=== PATIENT | female | born 1960 | race Caucasian/White ===

== ENCOUNTER 2020-08-18 07:02 | Day surgery (SDC) | payer MEDICAID ==
[~2020-08-18 07:02] MED LIST: CEFAZOLIN 1 GM/D5W RTU 1 GM/50 ML RTUPB IV PRN; DEXTROSE 5%-LACTATED RINGERS 1,000 ML IV PRN; LIDOCAINE 4% CREAM 5 GM TUBE ONE; LIDOCAINE 4% CREAM 5 GM TUBE TP PRN
[2020-08-18] MEDS ORDERED: KETOROLAC TROMETHAMINE 60 MG/2 ML SDV ONE (08:39)
[2020-08-18] MEDS ORDERED: FENTANYL CITRATE INJ/PF 100 MCG/2 ML AMPUL ONE (08:39)
[2020-08-18] MEDS ORDERED: PROPOFOL INJ 200 MG/20 ML VIAL IV ONE (08:40)
[2020-08-18] MEDS ORDERED: DEXAMETHASONE SOD PHOSPHATE INJ 4 MG/1 ML VIAL ONE (08:40)
[2020-08-18] MEDS ORDERED: MIDAZOLAM 2 MG/2 ML INJ ONE (08:40)
[2020-08-18] MEDS ORDERED: ONDANSETRON HCL INJ/PF 4 MG/2 ML SDV ONE (08:40)
[2020-08-18] MEDS ORDERED: CEFAZOLIN 1 GM/D5W RTU 1 GM/50 ML RTUPB IV ONE (10:24)
[2020-08-18 10:39] LABS: ABSOLUTE BASOPHILS # (AUTO) 0.1 10^3/uL (0.0-0.2); ABSOLUTE EOSINOPHILS # (AUTO) 0.6 10^3/uL (0.0-0.6); ABSOLUTE LYMPHOCYTES (AUTO) 3.9 10^3/uL (0.5-4.7); ABSOLUTE MONOCYTES (AUTO) 0.9 10^3/uL (0.1-1.4); ABSOLUTE NEUT (AUTO) 5.5 10^3/uL (1.7-8.2); BASOPHILS % (AUTO) 0.6 % (0-2); EOSINOPHILS % (AUTO) 5.8 % (0-6); HEMATOCRIT 39.7 % (36.0-47.0); HEMOGLOBIN 13.3 g/dL (12.0-15.5); LYMPHOCYTES % (AUTO) 35.6 % (13-45); MEAN CORPUSCULAR HGB CONC 33.6 g/dL (32.0-36.0); MEAN CORPUSCULAR VOLUME 95 fl (80-97); MONOCYTES % (AUTO) 8.1 % (3-13); PLATELET COUNT 231 10^3/uL (150-450); RED BLOOD COUNT 4.18 10^6/uL (3.72-5.28); RED CELL DISTRIBUTION WIDTH 13.3 % (11.5-14.0); SEGMENTED NEUTROPHILS % (AUTO) 49.9 % (42-78); TOTAL CELLS COUNTED % (AUTO) 100 %
[2020-08-18] MEDS ORDERED: ALBUTEROL SULFATE 0.083% NEB 2.5 MG/3 ML AMPUL NEB ONE ×2 (10:48→11:00)
[2020-08-18 10:58] LABS: ANION GAP 8 (5-19); BLOOD UREA NITROGEN 12 mg/dL (7-20); CALCIUM 9.7 mg/dL (8.4-10.2); CARBON DIOXIDE 25 mmol/L (22-30); CHLORIDE 107 mmol/L (98-107); GLUCOSE 94 mg/dL (75-110); POTASSIUM 4.7 mmol/L (3.6-5.0)
--- NOTE | 2020-08-18 11:10 | Operative Report ---
Operative Report DATE OF SURGERY: 08/18/20 PREOPERATIVE DIAGNOSIS: Invasive ductal carcinoma right breast POSTOPERATIVE DIAGNOSIS: Same OPERATION: 1. Focused ultrasound left neck. 2. Insertion of ultrasound directed single-lumen [id number] catheter with port in the left subclavian position. 3. Interpretation of intraoperative fluoroscopy SURGEON: CRISTINA VARGAS ANESTHESIA: LMAC TISSUE REMOVED OR ALTERED: None COMPLICATIONS: None ESTIMATED BLOOD LOSS: Scant INTRAOPERATIVE FINDINGS: See below PROCEDURE: Patient was taken from the preop holding area, after the left neck was marked, and taken to the main operating room where LMAC anesthesia was induced. Arms were tucked, neck extended and rotated to the right, left neck and chest prepped and draped in a sterile fashion with Betadine. Surgical plan surgical timeout were conducted Markings were made on the skin for planned left subclavian port going into the left internal jugular vein. The left neck was scanned with a variable frequency linear transducer and findings were significant for compressible, moderate to large caliber internal jugular vein suitable for cannulation. Skin was anesthetized with 1% plain lidocaine. A ellis was made in the skin with 11 blade, and using ultrasound as a guide, the micro needle and wire were threaded into the left internal jugular vein. Photo of left internal jugular vein retained for the record. We will site for placement of the port was chosen left subclavian position. The skin was anesthetized with 1% plain lidocaine. A 3 and half centimeter incision was made in the skin horizontal to the clavicle. A subcutaneous pocket was developed large enough to accommodate a single-chamber port. Catheter was then trimmed to the appropriate length, tunnel between the 2 incisions, attached to the port with the plastic ring and the port tucked into the left subclavian pocket. Under fluoroscopic guidance, real-time, the micro wire was switched over to a conventional 0.030 guidewire, then the 9 [place] dilator introducer sheath were threaded over the guidewire. The guidewire and dilator were removed,, and the free fragment of catheter threaded into the strip away sheath. The strip away sheath was removed leaving the cath in good position with the tip in the junction between the innominate vein and superior vena cava. Fluoroscopically there is no evidence of kinking of the catheter at the neck. There was excellent aspiration and flushing through the single-chamber port. Hemostasis was excellent. Wounds closed with 3-0 Vicryl, benzoin and Steri-Strips. Sponge and needle counts are correct. Patient taught procedure well, taken to recovery room stable condition.
[2020-08-18] MEDS ORDERED: MICROFIBRILLAR COLLAGEN 1 GM PACK ONE (11:18)
[2020-08-18] MEDS ORDERED: LIDOCAINE 1%/EPINEPHRINE INJ 20 ML VIAL ONE (11:18)
[2020-08-18] MEDS ORDERED: METHYLENE BLUE 50 MG/10 ML AMPULE ONE (11:18)
[2020-08-18] MEDS ORDERED: OXYCODONE-ACETAMINOPHEN 5-325 MG TABLET PO PRN ×3 (12:30→13:16)
[2020-08-18] MEDS ORDERED: MEPERIDINE HCL/PF INJ 25 MG/1 ML DISP.SYRIN IV PRN (12:30)
[2020-08-18] MEDS ORDERED: DIPHENHYDRAMINE HCL 50 MG/ML VIAL IV PRN (12:30)
[2020-08-18] MEDS ORDERED: FENTANYL CITRATE INJ/PF 100 MCG/2 ML AMPUL IV PRN ×3 (12:30)
[2020-08-18] MEDS ORDERED: PROMETHAZINE HCL INJ 25 MG/1 ML VIAL IV PRN ×2 (12:30)
[2020-08-18] MEDS ORDERED: MORPHINE SULFATE 10 MG/ML INJ IV PRN (12:30)
--- NOTE | 2020-08-18 13:15 | Discharge Summary ---
Discharge Summary (SDC) - Discharge Final Diagnosis: Invasive DCIS Date of Surgery: 08/18/20 Discharge Date: 08/18/20 Condition: Good Treatment or Instructions: [facility] [address] [place] [id number] Care Instructions Following Your Lumpectomy Activities: Resume normal activities when you feel comfortable. It is best to remain as active as possible to speed your recovery. It is common to experience some fatigue after surgery and you may find that short naps are helpful. Avoid strenuous activity such as weight lifting, tennis, etc at your surgical site for two weeks. Perform gentle arm exercises daily and do not favor your operative arm to due increased risk of mobility issues postoperatively. No driving for 7 days after surgery. Do not drive if you are taking pain medication other than Tylenol or Ibuprofen. No swimming, tub baths or soaking in a hot tub for 4 weeks. There are no dietary restrictions. Do not smoke as this impairs wound healing. Surgical Site care: You may shower 24 hours after surgery to include washing the wound with soap and water using your hands. Do not scrub the incision. Pat the area dry with a towel. Leave skin glue intact. You do not need to recover the wound although some patients find that they feel more comfortable using a light dressing for a few days to absorb any minimal drainage which may occur. Many patients also find that keeping a dressing around the drain exit site is helpful to absorb any drainage which may leak around the tubing. If you use a dressing in this manner change it at least every day. Do not use heating pad or apply an ice pack to the operative site. You may apply deodorant if you are careful to avoid getting it on the wound itself. Empty the bulbs attached to the drain every 12 hours and measure the fluid output separately from each drain. Please also strip each drain each time you empty it to prevent clogging. Keep a record of the output and bring this re cord with you each time you come to the office for postoperative care. A drain is ready to be removed when its output is 30 mL per 24 hours per drain for 2 consecutive days. Please call the office to inform our staff that you need to come in for drain removal. Medications: Take Toradol 10mg one pill by mouth every six hours as needed for pain. Do not take additional NSAIDs with medication. You may take Tylenol as needed. Resume all of your normal prescription medications after your surgery unless instructed otherwise. You may experience constipation after surgery while taking pain medications. If using a narcotic on a regular basis, take a stool softener such as Colace twice a day. It is helpful to stay hydrated by drinking lots of fluids. Walking is also helpful and is good exercise after surgery. If you need extra help, use Milk of Magnesia according to the directions on the package. Follow-up: Call our office at to make a follow-up appointment in 10-14 days. Your doctor will call to discuss the pathology report with you as soon as it is available. Concerns: If you had a sentinel lymph node biopsy with your mastectomy, your urine may have a greenish discoloration. This is normal and will resolve as the blue dye slowly leaves your system. If you notice significant leakage around the drains, this is not normal. The drains may be clogged. Please call our office to come in immediately for the drains to be checked. Some bruising may occur and will go away over time. If you have a fever of 101.5 or greater, chills, redness at the incision site, excessive drainage from your wound or severe pain not relieved by pain medication, call your doctor. A physician is available 24 hours a day 7 days a week in addition to regular office hours. If problems arise after normal office hours please call the hospital at . Please call if you have any questions or concerns. Prescriptions: Ketorolac Tromethamine [Toradol 10 mg Tablet] 10 mg PO Q6HP PRN #20 tablet PRN Reason: Discharge Diet: As Tolerated Discharge Activity: Balance Activity w/Rest, No Lifting Over 10 Pounds, No Lifting/Push/Pulling, Walk Frequently Report the Following to Your Physician Immediately: Increase in Pain, Unusual Bleeding, Redness, Swelling, Warmth, Increased Soreness, Drainage-Foul Smelling
--- NOTE | 2020-08-18 13:17 | Operative Report ---
Operative Report DATE OF SURGERY: 08/18/20 PREOPERATIVE DIAGNOSIS: 1. Invasive ductal carcinoma, right breast status post biopsy with clip marker placement. 2. History of craniotomy with mild cognitive dysfunction POSTOPERATIVE DIAGNOSIS: Same OPERATION: 1. Ultrasound directed right breast lumpectomy with drain placement. 2. Philip lymph node biopsy x3 right axilla. 3. Interpretation of intraoperative specimen radiographs SURGEON: CRISTINA VIZCARRA MUSIC WRITER: KERI LARES ANESTHESIA: GA TISSUE REMOVED OR ALTERED: 1 breast lumpectomy specimen, marked with sutures; 3 sentinel lymph nodes COMPLICATIONS: None ESTIMATED BLOOD LOSS: Scant INTRAOPERATIVE FINDINGS: See below PROCEDURE: Patient was seen in the preop holding area after undergoing lymphoscintigraphy of the right axilla. Bedside neoprobe analysis revealed an area of increased uptake in the right axilla consistent with successful sentinel lymph node mapping. The patient was taken to the main operating room where general anesthesia was induced via LMA. Right arm was abducted, breast exposed. The surface of the right breast was exposed, prepped with alcohol. Approximately 1-1/2 cc of full- strength methylene blue was injected into the dermis at the areolar border at approximately 10 o'clock position. The right breast was massaged, and then the right breast and right axilla were clipped of hair, prepped and draped in sterile fashion. Surgical plan and surgical timeout were conducted. Ultrasonography was used to localized the right breast tumor which was approximately 8 cm from the nipple at the 7 to 7:30 position right breast. Markings were made on the skin, the skin anesthetized 1% plain lidocaine, an approximately 5 cm curvilinear incision was made inferior aspect of the right breast. A very thin piece of skin was removed with a lumpectomy specimen. Using ultrasound as a guide, a open excisional right breast lumpectomy was performed using electrocautery, approximately 5 x 6 x 5 cm. Level of dissection was taken down to the pectoralis major muscle. The specimen was removed from the patient's right breast, marked with a long suture in the lateral position a short suture in the superior position. The specimen was placed on a Lisa dish, and radiographed in 2 dimensions in the operating room. These images revealed retention of the preoperative minimally invasive biopsy clip marker, as well as tumor. Specimen was sent fresh to Dr. Contreras, pathologist, who inked, and sliced the specimen and found the tumor to be less than 1 cm in the middle of the lumpectomy specimen. This confirmed. Acquisition of the tumor, and previously placed clip marker. We returned to the operating field, check for bleeding from the right axilla and there was some bruising just lateral to the pectoralis muscle which was managed with a 3-0 Vicryl suture. We now performed a sentinel lymph node biopsy of the right axilla. An area of increased activity in the low axilla was identified. The skin was anesthetized with 1% plain lidocaine, and a separate sentinel lymph node biopsy incision was made with a #10 blade. We now harvested 3 hot and blue sentinel lymph nodes all from the mid to high axilla, level 1. The first sentinel lymph node was hot blue with an in vivo count of 23,506, an ex vivo count of 63,312. The second and third lymph nodes were much smaller than the first, both blue and hot, with an in vivo count of 5834, and an ex vivo count of 4534. The third lymph node had an ex vivo count of 3927. Background counts were negligible. We felt the sentinel lymph node biopsy portion of the operation was complete. A large Ronni drain was placed in the inframammary fold, trimmed to the appropriate length, attached to the skin with 2-0 Prolene suture, and functional and left in the immediate cavity site. Hemostasis was excellent. Activated Avitene was placed in the lumpectomy cavity. The sentinel lymph node biopsy site was free of bleeding. Wounds closed in layers with 3-0 Vicryl, and Exofin skin glue. Patient tolerated procedure well, extubated, taken to recovery room in stable condition YAYA Siegel assisted with retracting tissue, and closure of operative wounds.
--- NOTE | 2020-08-18 13:39 | RADIOLOGY REPORT (SQ) ---
EXAM DESCRIPTION: NM LYMPHATICS/LYMPH GLANDS IMAGES COMPLETED DATE/TIME: 08/18/2020 10:16 am REASON FOR STUDY: MALIGNANT NEOPLASM OF RT FEMALE BREAST C50.911 MALIGNANT NEOPLASM OF UNSP SITE OF RIGHT FEMALE HOLLI COMPARISON: None. RADIONUCLIDE AND DOSE: 598 microcuries TC-99m tilmanocept - [employer]. The route of agent administration: Subcutaneous in the skin. TECHNIQUE: The skin of the right breast was prepped in sterile fashion. The radiopharmaceutical was administered in equally divided doses in the periareolar breast. LIMITATIONS: None. FINDINGS: Images demonstrate activity at the injection site. IMPRESSION: ADMINISTRATION OF RADIOPHARMACEUTICAL FOR SENTINEL LYMPH NODE EVALUATION. TECHNICAL DOCUMENTATION: JOB ID: [id number] 2010 [employer]- All Rights Reserved Reading location - IP/workstation name: [email or web address]
[2020-08-18] MEDS ORDERED: KETOROLAC TROMETHAMINE INJ/PF 30 MG/1 ML SDV ONE (14:23)
[2020-08-18] MEDS ORDERED: KETOROLAC TROMETHAMINE INJ/PF 30 MG/1 ML SDV IV ONE (14:30)
[2020-08-18] MEDS ORDERED: OXYCODONE-ACETAMINOPHEN 5-325 MG TABLET ONE (14:39)
[2020-08-18] MEDS ORDERED: OXYCODONE-ACETAMINOPHEN 5-325 MG TABLET PO ONE (14:45)
[2020-08-18] MEDS ORDERED: GLYCOPYRROLATE 1 MG/5 ML VIAL ONE (16:08)
[2020-08-18 16:14] VITALS: BP 133/78
--- OUTSIDE RECORDS SUMMARY | 2020-08-19 17:53 | XMS REPORT ---
:1960 [facility] Address [facility] [place] [facility] [address] [place] [address] Care Team Providers Name Role Phone JN TEJADA Primary Care Physician Unavailable KERWIN STUBBS Attending Clinician Unavailable RUSSELL Attending Clinician Unavailable Soraya Tenorio Attending Clinician Unavailable SHIRIN Attending Clinician Unavailable GENEVIEVE Attending Clinician Unavailable MUMTAZ DEL ANGEL Attending Clinician Unavailable IAN Attending Clinician Unavailable PARVEEN Attending Clinician Unavailable SARI Attending Clinician Unavailable Nella TEJADA Attending Clinician Unavailable Cruzito MITTAL Attending Clinician Unavailable Nella GARCIA PA-C Attending Clinician Unavailable DUNG Attending Clinician Unavailable NILTON Attending Clinician Unavailable Zander LOZANO Attending Clinician Unavailable PARVEEN Admitting Clinician Unavailable [facility] Admitting Clinician Unavailable Allergies, Adverse Reactions, Alerts Allergy Allergy Status Severity Reaction(s) Onset Inactive Treating C omments Name Type Date Date Clinician Venlafaxine Propensity Active Anxiety 2020-0 to adverse 2-25 reactions 00:00: to drug 00 Ziprasidone Propensity Active Unknown 2020-0 " dry Hcl to adverse 2-25 mouth " reactions 00:00: to drug 00 Haloperidol Propensity Active Severe Muscle pain 2020-0 drooling Lactate to adverse 2-25 reactions 00:00: to drug 00 Pregabalin Propensity Active Swelling 2020-0 B lurred to adverse 2-25 visio n reactions 00:00: to drug 00 Paroxetine Propensity Active Dysphoria 2020-0 Hcl to adverse 2-25 reactions 00:00: to drug 00 Olanzapine Propensity Active Dizziness 2020-0 to adverse 2-25 reactions 00:00: to drug 00 pregabalin Allergy to Active Unknown 2020-0 ([id number] substance 2-22 ) 00:00: 00 haloperidol Allergy to Active Moderate Unknown 2020-0 ([id number] substance 2-22 ) 00:00: 00 Haldol Allergy to Active Moderate Other substance Lyrica Allergy to Active Mild to Other substance moderate Paxil Allergy to Active Mild to Hallucinations substance moderate Haldol Allergy to Active (Ingredient Drug (s): (Finding) haloperidol ) Lyrica Allergy to Active Drug (Finding) Paxil Allergy to Active Drug (Finding) Medications Ordered Filled Start Stop Current Ordering Indication Dosage Frequency Signature Comments Components Medication Medication Date Date Medication? Clinician (SIG) Name Name lisinopriL 2020-0 Yes 5mg QD Take 1 Tab (PRINIVIL,Z 3-03 by mouth ESTRIL) 5 00:00: daily. mg Oral 00 Tablet nicotine 2020-0 Yes 1{patch QD 1 Patch by (NICODERM 3-03 } Transderma CQ) 14 00:00: l route mg/24 hr 00 daily. Transdermal Patch 24HR diazePAM 2019-0 2020- No 2mg 2 mg, (VALIUM) 12-07 Oral, AT tablet 2 mg 22:00: 21:59 BEDTIME, 00 :00 First dose (after last modificati on) on 12/08/19 at 2200, For 30 days
Fa ll Risk Medication . &nb sp;Use for Valium.
diphenhydrA 0 2020- No 50mg 50 mg, MINE 12-07 Oral, (BENADRYL) 16:35: 16:40 ONCE, Mon capsule 50 00 :00 12/08/19 at mg 1635, For 1 dose
Fa ll Risk Medication
diazePAM 2020-0 Yes 2mg Take 1 Tab (VALIUM) 2 3-02 by mouth mg Oral 00:00: at Tablet 00 bedtime. lurasidone 2020-0 Yes 80mg Take 1 Tab (LATUDA) 80 3-02 by mouth mg Oral 00:00: with Tablet 00 breakfast. Take with food. lurasidone 2020-0 2020- No 40mg Q.5D 40 mg, (LATUDA) 12-06 Oral, tablet 40 21:00: 20:59 TWICE A mg 00 :00 DAY, First dose (after last modificati on) on 12/07/19 at 2100, For 30 days
Ta ke with food.&nbsp ; Do not chew or crush.
diphenhydrA 2019-0 2020- No 50mg 50 mg, MINE 12-06 Oral, (BENADRYL) 15:25: 15:27 ONCE, Sun capsule 50 00 :00 12/07/19 at mg 1525, For 1 dose
Fa ll Risk Medication
dextroamphe No 5mg QD 5 mg, tamine-amph 12-06 Oral, etamine 17:45: 13:59 DAILY, (ADDERALL) 00 :10 First dose tablet 5 mg (after last modificati on) on 12/06/19 at 1745, For 30 doses ibuprofen No 800mg Q.25D 800 mg, (ADVIL,MOTR 12-05 Oral, FOUR IN) tablet 18:00: 08:59 TIMES A 800 mg 00 :00 DAY, First dose (after last modificati on) on Sun12/05/19 at 1800, For 30 doses
M aximum dose is 3200 mg/day.&nb sp; < br> lurasidone No 40mg 40 mg, (LATUDA) 12-04 Oral, WITH tablet 40 11:05: 13:59 BREAKFAST, mg 00 :10 First dose on Sun12/04/19 at 1105, For 365 days
Ta ke with food.&nbsp ; Do not chew or crush.
diazePAM No 2mg Q.5D 2 mg, (VALIUM) 12-04 Oral, tablet 2 mg 11:00: 13:55 TWICE A 00 :01 DAY, First dose on Sun12/04/19 at 1100, For 365 days
Fa ll Risk Medication . &nb sp;Use for Valium.
DULoxetine 2020- No 30mg Q.5D 30 mg, (CYMBALTA) 12-03 Oral, DR capsule 21:00: 20:59 TWICE A 30 mg 00 :00 DAY, First dose on Sun12/03/19 at 2100, For 365 days
Do NOT crush, break, or chew.&nbsp ; For tube administra tion, open capsule and flush pellets down tube.
ibuprofen 2019- No 800mg Q6H 800 mg, (ADVIL,MOTR 12-03 Oral, IN) tablet 14:04: 15:11 EVERY 6 800 mg 36 :21 HOURS NEEDED, Moderate Pain, Starting Sun12/03/19 at 1404, For 30 days
Ma ximum dose is 3200 mg/day.&nb sp; < br> lisinopriL 2019- No 5mg QD 5 mg, (PRINIVIL,Z 12-03 Oral, ESTRIL) 14:00: 08:59 DAILY, tablet 5 mg 00 :00 First dose on Sun12/03/19 at 1400, For 30 doses nicotine 2019- No 1{patch QD 1 Patch, (NICODERM 12-03 } Transderma CQ) 14 09:00: 08:59 l, mg/24 hr 00 :00 Administer patch 1 over 24 Patch Hours, DAILY, First dose on Sun12/03/19 at 0900, For 30 days
If patch contains metal, remove patch PRIOR to MRI. Med Disposal - [facility]
diphenhydrA 2019- No 50mg Q8H [Order 1 MINE 12-02 Start] (BENADRYL) 19:10: 20:09 Name: injection 15 :15 diphenhydr 50 mg AMINE (BENADRYL) injection 50 mg Signed Summary: 50 mg, Intramuscu lar, EVERY 8 HOURS NEEDED, Agitation, Starting Sun12/02/19 at 191, For 30 days
Fa ll Risk Medication . Do NOT exceed 25 mg/minute.
[Order 1 End] [Order 2 Start] Name: haloperido l lactate (HALDOL) injection 10 mg Signed Summary: 10 mg, Intramuscu lar, EVERY 8 HOURS NEEDED, Agitation, Starting Sun12/02/19 at 191, For 30 days
Fa ll Risk Medication
[Order 2 End] [Order 3 Start] Name: LORazepam (ATIVAN) 2 mg/mL injection 2 mg Signed Summary: 2 mg (0.0265 mg/kg), Intramuscu lar, EVERY 8 HOURS NEEDED, Agitation, Starting Tu12/02/19 at 1909, For 30 days
Fall Risk Medication . Dilute 1:1 with 0.9% sodium chloride or D5W for IV administra tion.&nbsp ; Adm inistratio n rate should NOT exceed 2 mg/minute.
[Order 3 End] diphenhydrA 2019- No 50mg Q8H [Order 1 MINE 12-02 Start] (BENADRYL) 19:09: 20:08 Name: capsule 50 26 :26 diphenhydr mg AMINE (BENADRYL) capsule 50 mg Signed Summary: 50 mg, Oral, EVERY 8 HOURS NEEDED, Agitation, Starting Sun12/02/19 at 1908, For 30 days
Fa ll Risk Medication
[Order 1 End] [Order 2 Start] Name: haloperido l (HALDOL) tablet 10 mg Signed Summary: 10 mg, Oral, EVERY 8 HOURS NEEDED, Agitation, Starting Sun12/02/19 at 1908, For 30 days<br&gt ;Fall Risk Medication
[Order 2 End] [Order 3 Start] Name: LORazepam (ATIVAN) tablet 2 mg Signed Summary: 2 mg, Oral, EVERY 8 HOURS NEEDED, Agitation, Starting Sun12/02/19 at 1909, For 30 days
Fa ll Risk Medication
[Order 3 End] magnesium 2019- No 30mL Q1D 30 mL hydroxide 12-02 (0.397 (MILK OF 19:09: 20:08 mL/kg), MAGNESIA) 12 :12 Oral, 400 mg/5 mL DAILY suspension NEEDED, 30 mL Constipati on, Starting 12/02/19 at 1908, For 30 days
Shake well.&nbsp ;
acetaminoph 2020- No 650mg Q6H 650 mg, en 12-02 0224 Oral, (TYLENOL) 19:09: 19:08 EVERY 6 tablet 650 04 :04 HOURS mg NEEDED, Moderate Pain, Starting 12/02/19 at 1908, For 365 days zolpidem 2019- No 10mg Q1D 10 mg, (AMBIEN) 12-02 Oral, AT tablet 10 19:08: 20:07 BEDTIME mg 58 :58 NEEDED, Sleep, Starting Sun12/02/19 at 1907, For 30 days
Fa ll Risk Medication
ondansetron 2019- No 4mg Q6H 4 mg, ODT 12-02 Oral, (ZOFRAN-ODT 19:08: 20:07 EVERY 6 ) 58 :58 HOURS dispersible NEEDED, tablet 4 mg Nausea/Vom iting, Starting Sun12/02/19 at 1907, For 30 days
Or ally disintegra ting.&nbsp ; &nb sp; < br> loperamide 2019- No 2mg Q1D 2 mg, (IMODIUM) 12-02 Oral, capsule 2 19:08: 20:07 NEEDED, mg 58 :58 Diarrhea, Starting Sun12/02/19 at 1907, For 30 days
Gi ve after each loose stool.&nbs p; Ma ximum dose is 16 mg (8 capsules in 24 hours)
hydrOXYzine 2019- No 50mg Q8H 50 mg, (VISTARIL) 12-02 Oral, capsule 50 19:08: 20:07 EVERY 8 mg 58 :58 HOURS NEEDED, Anxiety, Starting Sun12/02/19 at 1907, For 30 days
Fa ll Risk Medication
cloNIDine 2019- No .1mg Q6H 0.1 mg, (CATAPRES) 12-02 Oral, tablet 0.1 19:08: 20:07 EVERY 6 mg 57 :57 HOURS NEEDED, For systolic blood pressure over 140mm Hg or diastolic blood pressure over 90mm Hg, Starting Sun12/02/19 at 1907, For 30 days
Fa ll Risk Medication . &nb sp;Use for Catapres<b r> alum-mag 2019- 2020- No 30mL Q6H 30 mL, hydroxide-s 12-02 Oral, imeth 19:08: 20:07 EVERY 6 (MAALOX) 57 :57 HOURS 200-200-20 NEEDED, mg/5 mL Indigestio suspension n, 30 mL Starting 12/02/19 at 1908, For 30 days<br&gt ;Do NOT give with other oral medication s. &n bsp;Shake well.
methylpredn 2018-10 No methylpred isolone 1-22 nisolone acetate 40 16:13: acetate 40 mg/mL 03 mg/mL suspension suspension for for injectionAd injection miniter Adminiter 40mg IM 40mg IM Gabapentin 2019- No 100 Three 8-29 02-23 Times Per 04:38: 00:00 Day 00 :00 Gabapentin No Meri Mittal 100 Three (Neurontin* 8- Md Times Per ) 100 Mg 00:00: Day Capsule 00 Diclofenac 2019- No 1 Four Times Sodium 4-17 02-23 Daily 12:36: 00:00 00 :00 Diclofenac No Mikie 1 Four Times Sodium 4-17 Garcia Do Daily (Voltaren 00:00: Gel*) 100 00 Gm Tube Diclofenac No Mikie 1 Four Times Sodium 4-17 Garcia Do Daily (Voltaren 00:00: Gel*) 100 00 Gm Tube Divalproex 2018- No 500 Twice Per Sodium 5-19 05-20 Day 09:52: 00:00 00 :00 Olanzapine 2018- No 5 Twice Per 5-19 05-20 Day 09:52: 00:00 00 :00 Benztropine 2019- No 1 Once Per Mesylate 5-19 05-20 Day 09:52: 00:00 00 :00 Benztropine 2018- No Meri Mittal 1 Once Per Mesylate 5-19 05-20 Md Day (Cogentin*) 00:00: 00:00 1 Mg 00 :00 Tablet, 1 Mg Oral Divalproex 2018- No Meri Mittal 500 Twice Per Sodium 5-19 05-20 Md Day (Depakote 00:00: 00:00 Dr Tab*) 00 :00 500 Mg Tablet.dr, 500 Mg Oral Olanzapine 2018- No Meri Mittal 5 Twice Per (Zyprexa*) 5-19 05-20 Md Day 5 Mg 00:00: 00:00 Tablet, 5 00 :00 Mg Oral Benztropine 2018- No Meri Mittal 1 Once Per Mesylate 02-23 Day (Cogentin*) 00:00: 00:00 1 Mg 00 :00 Tablet, 1 Mg Oral Divalproex 2018- No Meri Mittal 500 Twice Per Sodium 02-23 Md Day (Depakote 00:00: 00:00 Dr Tab*) 00 :00 500 Mg Tablet.dr, 500 Mg Oral Olanzapine 2018- No Meri Mittal 5 Twice Per (Zyprexa*) 02-23 Md Day 5 Mg 00:00: 00:00 Tablet, 5 00 :00 Mg Oral Haloperidol 2017- No 5 Once Per 06-30 Day At 08:35: 00:00 Bedtime 00 :00 Benztropine 2018- No .5 Once Per Mesylate 06-30 At 08:35: 00:00 Bedtime 00 :00 Benztropine 2018- No José Miguel Ta Md .5 Once Per Mesylate 06-30 Day At (Cogentin*) 00:00: 00:00 Bedtime 0.5 Mg 00 :00 Tablet, 0.5 Mg Oral Haloperidol 2017- No José Miguel Ta Md 5 Once Per (Haldol*) 5 06-30 Day At Mg Tab, 5 00:00: 00:00 Bedtime Mg Oral 00 :00 Benztropine 2017- No José Miguel Ta Md .5 Once Per Mesylate 06-30 Day At (Cogentin*) 00:00: 00:00 Bedtime 0.5 Mg 00 :00 Tablet, 0.5 Mg Oral Haloperidol 2018- No José Miguel Ta Md 5 Once Per (Haldol*) 5 06-30 Day At Mg Tab, 5 00:00: 00:00 Bedtime Mg Oral 00 :00 Duloxetine 2018- No 60 Twice Per Hcl 05-03 Day 20:21: 00:00 00 :00 Haloperidol 2018- No 5 Once Per 05-03 Day At 20:21: 00:00 Bedtime 00 :00 Benztropine 2018- No .5 Once Per Mesylate 05-03 Day At 20:21: 00:00 Bedtime 00 :00 Benztropine 2017- No Michelle Fermin .5 Once Per Mesylate 05-03 Marta Devine Day At (Cogentin*) 00:00: 00:00 Bedtime 0.5 Mg 00 :00 Tablet, 0.5 Mg Oral Duloxetine 2017- No Michelle J 60 Twice Per Hcl 05-03 Marta Devine Day (Cymbalta*) 00:00: 00:00 60 Mg 00 :00 Capsule.dr, 60 Mg Oral Haloperidol 2017- No Michelle Fermin 5 Once Per (Haldol*) 05-03 Marta Devine Day At Mg Tab, 5 00:00: 00:00 Bedtime Mg Oral 00 :00 Benztropine 2017- No Michelle Fermin .5 Once Per Mesylate 05-03 Marta Devine Day At (Cogentin*) 00:00: 00:00 Bedtime 0.5 Mg 00 :00 Tablet, 0.5 Mg Oral Duloxetine 2017- No Michelle J 60 Twice Per Hcl 05-03 Marta Devine Day (Cymbalta*) 00:00: 00:00 60 Mg 00 :00 Capsule.dr, 60 Mg Oral Haloperidol 2017- No Michelle Fermin 5 Once Per (Haldol*) 05-03 Marta Devine Day At Mg Tab, 5 00:00: 00:00 Bedtime Mg Oral 00 :00 Acetaminoph 2012- No 1 As Needed en/Hydrocod 05-13 Every 6 To one Bitart 05:57: 00:00 8 Hours 00 :00 Acetaminoph 2011- No Caitlin Mark 1 As Neede d en/Hydrocod 05-13 Ayala Do Every 6 To one Bitart 00:00: 00:00 8 Hours (Hydrocodon 00 :00 -Acetaminop hen 5-500) 5 Mg/500 Mg Tab, 1 Tablet Oral ALPRAZolam Yes 1{tbl} [id number] 1 tab by (XANAX) 1 03-05 [id number] mouth 3 MG tablet 00:00: 3D times a 00 day amphetamine Yes 1{tbl} Q.5D 1 tab by -dextroamph 03-05 mouth 2 etamine 00:00: times a (ADDERALL) 00 day 20 mg tablet diclofenac Yes 1{tbl} Q.5D 1 tab by (VOLTAREN) 03-05 mouth 2 75 MG EC 00:00: times a tablet 00 day DULoxetine Yes 4{capsu QD 4 cap by (CYMBALTA) 03-05 le} mouth [address] 00:00: daily capsule 00 hydrocodone Yes 1{tbl} Q.5D 1 tab by -acetaminop 03-05 mouth 2 hen 00:00: times a (VICODIN 00 day as ES) 7.5-750 needed mg tablet promethazin Yes 1{tbl} Q1H 1 tab by e 03-05 mouth as (PHENERGAN) 00:00: needed 25 MG 00 tablet verapamil Yes 2{tbl} QD 2 tab by (CALAN-SR) 03-05 mouth at 240 MG SR 00:00: bedtime tablet 00 oxyCODONE 2010-10 Yes (ROXICODONE 2-14 ) 5 MG 00:00: immediate 00 release tablet pantoprazol Yes 1{tbl} QD 1 tab by e 8-23 mouth (PROTONIX) 00:00: daily [address] 00 tablet duloxetine Yes 30mg Q.5D take 30 mg (CYMBALTA) by mouth 30 mg Oral Twice a CpDR day.. fluticasone Yes 2{spray Q.5D 2 Sprays propionate } by Nasal (FLONASE) route 50 twice a mcg/actuati day as on Nasal needed. [place], Suspension fluticasone No 2spray( Q1D fluticason propionate s) e 50 propionate mcg/actuati 50 on nasal mcg/actuat spray,suspe ion nasal nsion [place] spray,susp 2 sprays ension every day [place] 2 by sprays intranasal every day route. by intranasal route. montelukast No 1 Q1D montelukas 10 mg t 10 mg tablet Take tablet 1 tablet Take 1 every day tablet by oral every day route at by oral bedtime. route at bedtime. Percocet 10 No 1 Q6H Percocet mg-325 mg 10 mg-325 tablet Take mg tablet 1 tablet Take 1 every 6 tablet hours by every 6 oral route. hours by oral route. Dextroamphe No 1 Twice Per tamine/Amph Day etamine (Amphetamin e Salts 20 Mg Tablet) 20 Mg Tablet Diazepam No 1 Twice Per (Valium*) Day as 10 Mg needed for Tablet Anxiety Duloxetine No 2 Every Hcl 60 Mg Morning Capsule. Temazepam No 1 Once Per 30 Mg Day At Capsule Bedtime Dextroamphe No 1 Twice Per tamine/Amph Day etamine (Amphetamin e Salts 20 Mg Tablet) 20 Mg Tablet Diazepam No 1 Twice Per (Valium*) Day as 10 Mg needed for Tablet Anxiety Duloxetine No 2 Every Hcl 60 Mg Morning Capsule. Lisinopril No 1 Every 10 Mg Morning Tablet Temazepam No 1 Once Per 30 Mg Day At Capsule Bedtime Amphetamine Yes 5 Twice Per /Dextroamph Day etamine Brexpiprazo Yes 1 Every le Morning Diazepam Yes 5 Twice Per Day as needed for Anxiety Duloxetine Yes 120 Once Per Hcl Day Fluticasone Yes 2 Once Per Propionate Day as needed for Rhinitis Lisinopril Yes 10 Once Per Day Montelukast Yes 10 Once Per Sodium Day At Bedtime Adderall Yes 1 Cymbalta Yes 1 diazePAM Yes 1 Lisinopril Yes 1 Singulair Yes 1 diazePAM Yes 2 Augmentin No 1 BID Augmentin 875 mg-125 875 mg-125 mg tablet mg tablet Take 1 Take 1 tablet tablet twice a day twice a by oral day by route. oral route. methylpredn No methylpred isolone nisolone acetate 40 acetate 40 mg/mL mg/mL suspension suspension for for injection injection Adminiter Adminiter 40mg IM 40mg IM Zyrtec 10 No 1 Q1D Zyrtec 10 mg tablet mg tablet Take 1 Take 1 tablet tablet every day every day by oral by oral route. route. doxycycline No 1capsul BID doxycyclin hyclate 100 e(s) e hyclate mg capsule 100 mg Take 1 capsule capsule Take 1 twice a day capsule by oral twice a route for day by 10 days. oral route for 10 days. Rexulti No Rexulti Rexulti 1 No 1 Q1D Rexulti 1 mg tablet mg tablet Take 1 Take 1 tablet tablet every day every day by oral by oral route as route as directed. directed. zolpidem SR 2020- No 12.5mg take 12.5 (AMBIEN CR) 03-02 mg by 12.5 mg 00:00 mouth At Oral TbMP :00 bedtime.. lamOTRIGine 2020- No 25mg QD take 25 mg (LAMICTAL) 03-02 by mouth 25 mg Oral 00:00 Daily. Tab :00 Amphetamine 2020- No 5mg Q.5D Take 5 mg -Dextroamph 03-02 by mouth etamine 00:00 twice a (ADDERALL) :00 day. 10 mg Oral Tab cyclobenzap 2020- No 5mg QD take 5-10 rine 03-02 mg by (FLEXERIL) 00:00 mouth 10 mg Oral :00 Daily. Tab trazodone 2020- No 400mg Q1D take 400 (DESYREL) 03-02 mg by 100 mg Oral 00:00 mouth At Tab :00 bedtime as needed. for Sleep. LISINOPRIL 2020- No QD Take by ORAL 03-02 mouth 00:00 daily. :00 montelukast 2020- No QD Take by sodium 03-02 mouth (SINGULAIR 00:00 daily. ORAL) :00 diazePAM 2020- No 5mg Q.5D Take 5 mg (VALIUM) 5 02 by mouth mg Oral 00:00 twice a Tablet :00 day as needed for Anxiety. Duloxetine 2020- No 2 Every Hcl - Morning 00:00 :00 Lisinopril 2020- No 1 Every -24 Morning 00:00 :00 Montelukast 2020- No 10 Once Per Sodium 12-01 Day At 00:00 Bedtime :00 Temazepam 2020- No 1 Once Per 11-30 Day At 00:00 Bedtime :00 Dextroamphe 2019- No 1 Twice Per tamine/Amph 11-30 Day etamine 00:00 :00 Diazepam 2020- No 1 Twice Per 11-30 Day as 00:00 needed for :00 Anxiety Alprazolam 2018- No 1 Three (Xanax*) 1 05-17 Times Per Mg Tablet, 00:00 Day as 1 Mg Oral :00 needed for Anxiety/In somnia Amphetamine 2017- No 20 Twice Per /Dextroamph 05-17 Day etamine 00:00 (Adderall*) :00 20 Mg Tablet, 20 Mg Oral Diphenhydra 2018- No 50 Once Per mine Hcl -17 Day At (Benadryl*) 00:00 Bedtime as 25 Mg :00 needed for Tablet, 50 Insomnia Mg Oral Duloxetine 2018- No 60 Twice Per Hcl 02-21 Day (Cymbalta*) 00:00 60 Mg :00 Capsule.dr, 60 Mg Oral Alprazolam 2017- No 1 Three (Xanax*) 1 05-17 Times Per Mg Tablet, 00:00 Day as 1 Mg Oral :00 needed for Anxiety/In somnia Amphetamine 2017- No 20 Twice Per /Dextroamph 02-21 Day etamine 00:00 (Adderall*) :00 20 Mg Tablet, 20 Mg Oral Diphenhydra 2018- No 50 Once Per mine Hcl 02-21 Day At (Benadryl*) 00:00 Bedtime as 25 Mg :00 needed for Tablet, 50 Insomnia Mg Oral Duloxetine 2017- No 60 Twice Per Hcl 02-21 Day (Cymbalta*) 00:00 60 Mg :00 Capsule.dr, 60 Mg Oral Duloxetine 2017- No 60 Twice Per Hcl 02-21 Day 00:00 :00 Alprazolam 2017- No 1 Three 05-17 Times Per 00:00 Day as :00 needed for Anxiety/In somnia Amphetamine 2018- No 20 Twice Per /Dextroamph 02-21 Day etamine 00:00 :00 Diphenhydra 2018- No 50 Once Per mine Hcl 02-21 Day At 00:00 Bedtime as :00 needed for Insomnia Buspirone 2014- No 1 Once Per Hcl 5 Mg 04-30 Day Tab, 1 Tab 00:00 Oral :00 Diazepam 2014- No 1 Twice Per (Valium 04-30 Day (Unknown 00:00 Dosage)) 1 :00 Ea Tab, 1 Tab Oral Diclofenac/ 2014- No 2 Once Per Misoprostol 04-30 Day (Arthrotec 00:00 (Unknown :00 Dosage)) 1 Ea Tab, 2 Tab Oral Duloxetine 2014- No 60 Twice Per Hcl 04-30 Day (Cymbalta*) 00:00 30 Mg Cap, :00 60 Mg Oral Gabapentin 2014- No 1 Three (Neurontin 07-24 Times Per (Unknown 00:00 Day Dosage)) :00 Tab, 1 Tab Oral Tramadol 2014- No 1 Once Per Hcl (Ultram 0724 Day (Unknown 00:00 Dosage)) 1 :00 Ea Tab, 1 Tab Oral Duloxetine 2014- No 60 Twice Per Hcl 04-30 Day 00:00 :00 Gabapentin 2014- No 1 Three 07-24 Times Per 00:00 Day :00 Tramadol 2014- No 1 Once Per Hcl 04-30 Day 00:00 :00 Buspirone 1 Once Per Hcl 00:00 :00 Diazepam 2014- No 1 Twice Per 04-30 Day 00:00 :00 Diclofenac/ 2014- No 2 Once Per Misoprostol 04-30 Day 00:00 :00 Acetaminoph 2011- No en/Hydrocod 08-26 one Bitart 00:00 (Vicodin :00 Elixer) 7.5 Mg/500 Mg Elix, Alprazolam Three (Xanax 1 08-26 Times Per Mg) 1 Mg 00:00 Day Tablet, 1 :00 Mg Oral Bisacodyl 5 As (Laxative) 08-26 Directed 5 Mg 00:00 Tablet.dr, :00 5 Mg Oral D-Amphetami 10 ne Salt , 08-26 10 Mg Oral 00:00 :00 Dexametason 1 e , 1 Mg 08-26 Oral 00:00 :00 Diclofenac 75 As Sodium 75 08-26 Directed Mg 00:00 Tablet.dr, :00 75 Mg Oral Levetiracet 500 am 500 Mg 08-26 Tablet, 500 00:00 Mg Oral :00 Ondansetron 4 Hcl 08-26 (Zofran*) 4 00:00 Mg Tablet, :00 4 Mg Oral Oxycodone 5 Hcl 08-26 (Roxicodone 00:00 *) 5 Mg :00 Tablet, 5 Mg Oral Promethazin 25 e Hcl 08-26 (Phenergan 00:00 25 Mg) 25 :00 Mg Tab, 25 Mg Oral Ranitidine 150 Hcl (Zantac 08-26 150 Mg Tab) 00:00 150 Mg Tab, :00 150 Mg Oral Verapamil No 240 Hcl 08-26 (Verapamil 00:00 Er) 240 Mg :00 Cap24h.pel, 240 Mg Levetiracet 500 am 08-26 00:00 :00 Ondansetron No 4 Hcl 08-26 00:00 :00 Oxycodone No 5 Hcl 08-26 00:00 :00 Promethazin 2012- No [address] e Hcl 08-26 or heavy 00:00 lifting. :00 May cause drowsiness . Ranitidine 2011- No 150 TAKE Hcl 08-26 ZANTAC 00:00 TWICE A :00 DAY Verapamil 2011- No 240 Hcl 08-26 00:00 :00 Acetaminoph 2011- No No driving en/Hydrocod 08-26 or heavy one Bitart 00:00 lifting. :00 May cause drowsiness . 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 a features features knife Allergic Allergic Problem Active rhinitis Rhinitis 10-10 00:00: 00 Asthma Asthma Problem Active - 00:00: 00 Mild Mild Problem Active chronic Chronic -03 obstructive Obstructive 00:00: pulmonary Pulmonary 00 disease Disease Pain of Pain of Problem Active breast Breast 10-10 00:00: 00 Anxiety Anxiety Problem Active 2018-10 00:00: 00 Hypertensiv Hypertensiv Problem Active 2018-10 e disorder e Disorder 10-29 00:00: 00 Chronic Chronic Problem Active pain of pain of 8-29 lower lower 04:36: extremity extremity 00 Peripheral Peripheral Problem Active neuropathy neuropathy 8-29 04:36: 00 Open wound Problem Resolve of left d 6-28 lower leg 12:14: 00 Open wound Open wound Problem Inactiv 2018-0 of left of left e 628 lower leg lower leg 12:14: 00 Nerve pain Problem Inactiv 2018-0 e 4-17 12:36: 00 Sciatic Problem Inactiv 2019-0 nerve pain e 4-17 12:36: 00 Nerve pain Problem Resolve 2019-0 d 4-17 12:36: 00 Sciatic Problem Resolve 2019-0 nerve pain d 4-17 12:36: 00 Sciatic Sciatic Problem Inactiv 2019-0 nerve pain nerve pain e 417 12:36: 00 Neuralgia Neuralgia Problem Inactiv 2019-0 e 417 12:36: 00 Unspecified Problem Inactiv 2017-0 psychosis e 5-19 16:10: 00 Unspecified Problem Inactiv 2017-0 psychosis e 5-19 16:10: 00 Psychosis Psychosis Problem Active 2017-0 5-19 16:10: 00 Involuntary Problem Inactiv 2017-0 commitment e 5-17 23:09: 00 Paranoid Problem Inactiv 2018-0 delusion e 5-17 23:09: 00 Psychiatric Problem Inactiv 2018-0 symptoms e 5-17 23:09: 00 Involuntary Problem Inactiv 2018-0 commitment e 5-17 23:09: 00 Paranoid Problem Inactiv 2018-0 delusion e 5-17 23:09: 00 Psychiatric Problem Inactiv 2018-0 symptoms e 5-17 23:09: 00 Involuntary Problem Resolve 2018-0 commitment d 5-17 23:09: 00 Paranoid Problem Resolve 2018-0 delusion d 5-17 23:09: 00 Psychiatric Problem Resolve 2018-0 symptoms d 5-17 23:09: 00 Psychiatric Psychiatric Problem Inactiv 2018-0 symptoms symptoms e 5-17 23:09: 00 Paranoid Paranoid Problem Active 2018-0 delusion delusion 5-17 23:09: 00 Involuntary Involuntary Problem Inactiv 2017-0 commitment commitment e 5-17 23:09: 00 Encounter Problem Inactiv 2014-0 for e 9-23 medication 08:36: refill 00 Encounter Problem Inactiv 2014-0 for e 9-23 medication 08:36: refill 00 Encounter Problem Inactiv 2014-0 for e 9-23 medication 08:36: refill 00 Encounter Encounter Problem Active 0 for for 9-23 medication medication 08:36: refill refill 00 Dysphagia Problem Inactiv 2014-0 e 05-20 19:32: 00 Dysphagia Problem Inactiv 2014-0 e 05-20 19:32: 00 Dysphagia Problem Inactiv 05-20 19:32: 00 Dysphagia Dysphagia Problem Active 05-20 19:32: 00 Depression Problem Inactiv 05-03 20:21: 00 Depression Problem Inactiv 05-03 20:21: 00 Depression Problem Inactiv 05-03 20:21: 00 Depression Depression Problem Active 05-03 20:21: 00 Not on file Not on file 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 Procedures Procedure Date / Time Performed Performing Clinician Lorri e MRI, breast, bilateral, w/wo 2020-04-11 00:00:00 contrast MAMMO, diagnostic, digital, 2020-03-30 00:00:00 unilateral DEXA 2020-02-02 00:00:00 URINALYSIS, COMPLETE 2019-12-05 11:48:00 Miguel Rice URINALYSIS, COMPLETE 2019-12-05 11:48:00 Miguel Rice HEMOGLOBIN A1C (GLYCOSYLATED) 2019-12-03 11:44:00 Miguel Rice LIPID PANEL 2019-12-03 11:44:00 Miguel Rice BASIC METABOLIC PANEL 2019-12-03 11:44:00 Miguel Rice CBC WITH DIFFERENTIAL 2019-12-03 11:44:00 Miguel Rice CBC WITH DIFFERENTIAL 2019-12-03 11:44:00 iMguel Rice XR, tibia + fibula 2019-11-01 00:00:00 MAMMO, diagnostic, digital, 2019-10-10 00:00:00 bilateral DELIVERY section Craniotomy for benign brain cyst Exp lap for endometriosis Breast bx Results Test Description Test Time Test Comments Text Results Atomic Results Result Comments URINALYSIS, COMPLETE 2019-12-05 07:31:00 Test Item Value Reference Range Comments Color, Urine (test code = 5778-6) Yellow Colorless, Yel low, or Straw Clarity, Urine (test code = 5767-9) Clear Clear Specific [place], Urine (test code = 5811-5) <=1.005 1.0 08-1.022 pH, Urine (test code = 5803-2) 6.0 5.0-8.0 Hemoglobin, Urine (test code = 5794-3) Negative Negative Bilirubin, Urine (test code = 5770-3) Negative Negative Urobilinogen, Urine (test code = 68226-6) Normal Normal Ketones, Urine (test code = 5797-6) Negative Negative Glucose, Urine (test code = 5792-7) Negative Negative Nitrites, Urine (test code = 5802-4) Negative Negative Leukocyte Esterase, Urine (test code = 5799-2) Negative N egative Protein, Urine (test code = 5804-0) Negative Negative ORTIZ (test code = ORTIZ) Lab Interpretation (test code = 87778-0) Abnormal BASIC METABOLIC [id number] 07:25:00 Test Item Value Reference Range Comments BUN (test code = 3094-0) 12 mg/dL 10-20 Sodium (test code = 2951-2) 140 mEq/L 136- 145 mEq/L Potassium (test code = 2823-3) 4.5 mEq/L 3.4- 4.4 mEq/L Chloride (test code = 2075-0) 105 mEq/L 98- 107 mEq/L CO2 (test code = 2027-9) 24 mEq/L 23- 31 mEq/L Anion Gap (test code = 53716-0) 11 mEq/L 4- 12 mEq/L Glucose (test code = 2345-7) 95 mg/dL 70-105 Creatinine (test code = 2160-0) 0.78 mg/dL 0.57-1.11 Glomerular Filtration Rate (test code 83 mL/Min/1.73 m2 >=59 mL/ Min/1.73 m2 = 18027-7) Calcium (test code = 88457-4) 9.1 mg/dL 8.4-10.2 Osmo (Calc'd) (test code = 66908-3) 290 mOsm/kg 273- 304 mOs m/kg Bun:Creat Ratio (test code = 3097-3) 15.38 Lab Interpretation (test code = Abnormal 76028-5) LIPID [id number] 07:25:00 Test Item Value Reference Range Comments Cholesterol (test code = 234 mg/dL See Comment CHOLEST LOIS REFERENCE 5333-3) RANGES: DESIRA BLE: <200 mg/dL BORDERLI NE HIGH: 200-239 mg/dL HIGH: >239 mg/dL Triglyceride (test code = 269 mg/dL <=150 2571-8) HDL Cholesterol (test code = 49 mg/dL 40-60 HDL Reference Ranges: 2085-9) Low: <40 mg/dL High: >=60 mg/dL LDL (test code = 52366-5) 131 mg/dL 0-100 LDL Re ference Ranges: Optimal: <100 mg/dL Near or above optimal : 100-129 mg/dL Borderli ne High: 130-159 mg/dL High: 160-189 mg/dL Very High: >= 190 mg/dL Chol/HDL Ratio (test code = 4.8 mg/dL 9830-1) Lab Interpretation (test code = Abnormal 58444-6) HEMOGLOBIN A1C (GLYCOSYLATED)2019-12-03 07:17:00 Test Item Value Reference Range Comments Hemoglobin A1C (test code = 4548-4) 5.1 % <=6.5 Est Avg Glucose (test code = 60888-5) 100 mg/dL ORTIZ (test code = ORTIZ) CBC WITH [id number] 07:14:00 Test Item Value Reference Range Comments WBC (White Blood Cell Count) (test code = 10.16 k/uL 4.50- 11.00 k/uL 6690-2) RBC (Red Blood Cell Count) (test code = 789-8) 4.00 M/uL 3 .80- 5.20 M/uL Hemoglobin (test code = 718-7) 12.7 g/dL 12-16 Hematocrit (test code = 4544-3) 38.8 % 35-47 MCV (Mean Corpuscular Volume) (test code = 97.0 fL 80-10 0 787-2) MCH (Mean Corpuscular Hemoglobin) (test code = 31.8 pg 2 6-34 785-6) MCHC (Mean Corpuscular Hemoglobin Concentration) 32.7 g/dL 32-36 (test code = 786-4) RDW (Red Cell Distribution Width) (test code = 13.3 % 1 1.5-14.5 788-0) Platelet Count (test code = 777-3) 261 k/uL 150- 440 k/uL MPV (Mean Platelet Volume) (test code = 10787-9) 11.6 fL 7.4-10.6 Neutrophils (%) (test code = 75574-3) 54 % Lymphocytes (%) (test code = 736-9) 31 % Monocytes (%) (test code = 5905-5) 9 % Eosinophils (%) (test code = 713-8) 5 % Basophils (%) (test code = 706-2) 0 % Immature Granulocytes (%) (test code = 10680-3) 1 % Absolute Neutrophils (#) (test code = 08114-0) 5.50 k/uL 1 .80- 7.70 k/uL Absolute Lymphocytes (#) (test code = 731-0) 3.15 k/uL 1.0 0- 4.80 k/uL Absolute Monocytes (#) (test code = 742-7) 0.90 k/uL 0.00- 0.80 k/uL Absolute Eosinophils (#) (test code = 711-2) 0.52 k/uL 0.0 0- 0.50 k/uL Absolute Basophils (#) (test code = 704-7) 0.03 k/uL 0.00- 0.20 k/uL Absolute Immature Granulocytes (#) (test code = 0.06 k/uL 0 k/uL 87136-2) Lab Interpretation (test code = 77579-3) Abnormal CAT [id number] 14:27:[address] [id number] Patient: LEVY MARIE : 1960 Sex: F Address: [address] [place] [address] [place] [address] Unit #: [id number] [facility] SEQ #: [id number] Location: [facility] Room #: Ordering: RUBEN GUO MD Diagnosis: IVC/PSYCH --------- CT facial bones. Comparison: No prior study. Clinical Information: Nose trauma, [employer] shunt. Findings: Axial source as well as sagittal and coronal reformatted images were obtained. The frontal, ethmoid, maxillary and sphenoidsinuses are well aerated. No air-fluid levels are identified. Osteomeatal complexes are widely patent. Nasal septum is not deviated. Ocular globes and retro orbital spaces are normal in their appearance. The facial bones and mandible appear intact. Impression: Negative. Final report elec tronically signed by: Adrien Solano MD Signed by: ADRIEN SOLANO MD 12/01/19 7092 cc: RUBEN GUO MD, WILLIAM [id number] 22:39:[address] [id number] Patient: LEVY MARIE : 1960 Sex: F Address: [address] [place] [address] [place] [address] [id number] Unit #: [id number] REQ SEQ #: [id number] Location: [facility] Room #: Ordering: MERI MITTAL MD Diagnosis: IVC/PSYCH -------- CHEST WITH LEFT RIBS CLINICAL HISTORY: IVC/PSYCH. COMPARISON: Portable chest dated 03/19/2012 TECHNIQUE: 1 PA view the chest and 4 views of the left ribs FINDINGS: No acute fracture or osseous destructive lesion. Noacute pulmonary consolidation, infiltrate or pneumothorax. The cardiac silhouette size is normal. Pulmonary vasculature and mediastinal structures appear normal. IMPRESSION: No evidence of acutefracture or acute cardiopulmonary disease. Final report electronically signed by: Ulices Vickers DO Signed by: ULICES VICKERS III, MD 11/30/19 3283 cc: ULICES VICKERS III, MD, SEAN MDColor of Urine by [id number] 09:52:00 Test Item Value Reference Range Comments Urine Color (test code = 50026-0) Yellow Urine clarity by refractometry dcawvvtsr5398-20-34 09:52:00 Test Item Value Reference Range Comments Urine Appearance (test code = 00044-1) Clear Urine specific gravity measurement by automated test strip (relative density) 2019-11-30 09:52:00 Test Item Value Reference Range Comments Urine Specific [place] (test code = 42177-7) 1.008 1.0 05-1.030 Urine pH measurement by automated test [id number] 09:52:00 Test Item Value Reference Range Comments Urine pH (test code = 70208-6) 5.0 5.0-8.0 Urine leukocyte esterase detection by automated test [id number] 09:52:00 Test Item Value Reference Range Comments Urine Leukocyte Esterase (test code = 16034-4) NEGATIVE N EGATIVE Urine nitrite detection by automated test rnrhl5605-67-06 09:52:00 Test Item Value Reference Range Comments Urine Nitrite (test code = 24047-1) NEGATIVE NEGATIVE Urine protein detection by automated test rseft7621-16-72 09:52:00 Test Item Value Reference Range Comments Urine Protein (test code = 14568-6) NEGATIVE NEGATIVE Urine glucose detection by automated test gzpry3059-57-42 09:52:00 Test Item Value Reference Range Comments Urine Glucose (UA) (test code = 60467-3) NEGATIVE NEGATIV E Urine ketone detection by automated test uizhx9738-02-86 09:52:00 Test Item Value Reference Range Comments Urine Ketones (test code = 00073-1) NEGATIVE NEGATIVE Urine urobilinogen measurement by automated test strip (mass/volume)2019-11-30 09:52:00 Test Item Value Reference Range Comments Urine Urobilinogen (test code = 19129-4) NEGATIVE NEGATIV E Urine bilirubin detection by automated test rnbys9976-38-38 09:52:00 Test Item Value Reference Range Comments Urine Bilirubin (test code = 27651-1) NEGATIVE NEGATIVE Urine erythrocytes detection by automated kxmfmr7180-79-06 09:52:00 Test Item Value Reference Range Comments Urine Blood (test code = 63959-4) NEGATIVE NEGATIVE Urine ascorbic acid blxlvhfju8415-63-47 09:52:00 Test Item Value Reference Range Comments Urine Ascorbic Acid Level (test code = 1904-2) NEGATIVE Urine amphetamine+methamphetamine hbtpqgakh9630-87-90 09:52:00 Test Item Value Reference Range Comments Urine Amphetamine/Methamphetamine (test code = NEGATIVE T hhld>=1000 02164-9) Urine buprenorphine joxrketld6308-44-22 09:52:00 Test Item Value Reference Range Comments Urine Buprenorphine (test code = 3414-0) NEGATIVE Thhld>= 5 Urine barbiturates tkrrxwyvr1168-98-83 09:52:00 Test Item Value Reference Range Comments Urine Barbiturates (test code = 3377-9) NEGATIVE Thhld>=2 00 Urine benzodiazepines uxpkbubos5773-94-32 09:52:00 Test Item Value Reference Range Comments Urine Benzodiazepines Screen (test code = 3390-2) POSITIVE Thhld>=200 Urine bbftw-4-fkoyphuvvdhkmpmocxqm (THC) kkcnpdoxk1062-70-90 09:52:00 Test Item Value Reference Range Comments Urine THC Interpretation (test code = 3426-4) NEGATIVE Th hld>=50 Urine cocaine ajezskeek9988-69-41 09:52:00 Test Item Value Reference Range Comments Urine Cocaine Screen (test code = 3397-7) NEGATIVE Thhld> =300 Urine methadone viyesiohl8501-29-16 09:52:00 Test Item Value Reference Range Comments Urine Methadone Screen (test code = 3773-9) NEGATIVE Thhl d>=300 Urine opiates xbkvlbpeb1498-68-40 09:52:00 Test Item Value Reference Range Comments Urine Opiates Screen (test code = 3879-4) NEGATIVE Thhld> =300 Urine oxycodone jrcnvpzys8944-15-98 09:52:00 Test Item Value Reference Range Comments Urine Oxycodone Screen (test code = 85664-2) NEGATIVE Thh ld>=100 MDMA ur hysiqf2575-98-90 09:52:00 Test Item Value Reference Range Comments Urine MDMA Screen (Ecstasy) (test code = 28273-0) NEGATIVE Thhld>=500 Urine 6-Acetylmorphine Dljhoi5278-22-51 09:52:00 Test Item Value Reference Range Comments Urine 6-Acetylmorphine Screen (test code = Urine NEGATIVE Thhld>=10 6-Acetylmorphine Screen) Urine Tramadol Hzroii2777-46-87 09:52:00 Test Item Value Reference Range Comments Urine Tramadol Screen (test code = Urine Tramadol NEGATIVE Thhld>=200 Screen) Urine Fentanyl Loqzoj2516-81-43 09:52:00 Test Item Value Reference Range Comments Urine Fentanyl Screen (test NEGATIVE Thhld>=1 This assay is intended as a code = Urine Fentanyl preliminar y screen. A more Screen) specific alterna tive chemical method must be u sed in order to obtain a confirm ed result. Gas chromatography s pectrometry (GC/MS) is the p referred confirmatory met hod and can be performed by a [facility] laboratory upon request. Clinical consideration an d professional judgement should be applied to any drug of abus e test result, particularly whe n preliminary results are used . Unconfirmed screening result s should be used for medical lillian tment purposes only. CAT [id number] 01:56:[address] [address] [id number] Patient: LEVY MARIE : 1960 Sex: F Address: [address] [place] [address] [place] [address] Unit #: [id number] [facility] SEQ #: [id number] Location: ED Room #: Ordering: RUDI NVOA DO Diagnosis: IVC/PSYCH ---- --- Examination: CT cervical spine without contrast Comparison: None. Indication: Fall. TECHNIQUE: A multidetector CT scanner was utilized in obtaining 1.25 mm thick contiguous axial images through the cervical spine without the use of intravenous contrast. Coronal and sagittal reformatted images were obtained. FINDINGS: There is mild straightening the normal cervical lordosis centered over the mid to upper cervical spine. Otherwise, the bony alignment is normal without significant subluxation. There is mild loss of height of the vertebral bodies from the C4 through T2 levels which appear chronic. There are Schmorl's nodes seen along thesuperior endplates of the T1 and T2 vertebral bodies. Prominent anterior osteophytic changes are seen at the C5-6 and C6-7 levels. Intervertebral disc space narrowing at the C6-7 level. No significant osseous narrowing of the spinal canal. The facet joints are normally aligned. Mild degenerative changes are seen at multiple facet joints within thecervical spine. No significant prevertebral soft tissue swelling. The craniocervical junction is grossly intact. Odontoid process is intact with normal relationship to the lateral masses of C1. Visualized skull base is intact. Visualized mastoid air cells are clear. There is osseous narrowing of the neural foraminato varying degrees at multiple levels of the cervical spine due to uncovertebral joint degenerative changes. Visualized upper lungs demonstrate subpleural cystic changes and mild emphysematous changes bilaterally. Mild bilateral apical pleural and parenchymal scarring. No evidence of acute epidural hematoma or significant disc herniation. Limited evaluation the lower cervical spinal canal due to artifact. Impression: 1. No definite CT evidence for acute cervical spinal injury. No acutefracture or significant subluxation. Multilevel degenerative changes of the cervical spine as described above. Final report electronically signed by: Buddy Cruz MD Signed by: BUDDY GORDON MD 11/30/19 0151 cc: RUDI NOVA JOHN E MDCANABELLA SCAN 2019-11-30 01:51:[address] [id number] Patient: LEVY MARIE : 1960 Sex: F Address: [address] [place] [address] [place] [address] Unit #: [id number] [facility] SEQ #: [id number] Location: ED Room #: Ordering: RUDI NOVA DO Diagnosis: IVC/PSYCH ---- --- Examination: CT of head without contrast Comparison: March 27, 2012. Indication: Fall. History of craniotomy at [place] in 2011. History of right ventricular shunt. TECHNIQUE: A multidetector CT scanner was utilized in obtaining 5 mm thick contiguous axial images through the head without the use of intravenous contrast. FINDINGS: There is redemonstration of a stable-appearing fragment of a ventriculostomy tube in the right frontal lobe leading to the midline within the medial aspect of the right frontal horn. There are encephalized changes adjacent to the ventriculostomy tube tract. No acute intracranial hemo rrhage. No hydrocephalus. Fourth ventricle is midline and patent. Partial effacement of the right-sided basilar cisterns stable. Mild age-appropriate cerebral atrophy. No abnormal extra axial fluidcollection. Vascular calculations are noted. Visualized orbits are symmetrical and grossly intact. Post surgical changes are seen in the right scalp. Evidence of prior right-sided craniotomy. Mild mucosal thickening in several ethmoidal air cells. Mastoid air cells are clear. Impression: 1. No significant interval change. No acute intracranial abdomen identified. No acute intracranial hemorrhage or acute large vessel infarct. No hydrocephalus. Fragment of right-sided ventriculostomy tube stable in position extending from the right frontal lobe to the midline. Final report electronically signed by: Buddy Cruz MD Signed by: BUDDY CRUZ MD 11/30/19 0147 cc: RUDI NOVA JOHN E [facility] [id number] 01:51:[address] [address] [id number] Patient: LEVY MARIE : 1960 Sex: F Address: [address] [place] [address] #: [id number] Unit #: [id number] REQ SEQ #: [id number] Location: ED Room #: Ordering: RUDI NOVA DO Diagnosis: IVC/PSYCH ---- --- Examination: CT maxillofacial without contrast Comparison: None. Indication: Fall. TECHNIQUE: A multidetector CT scanner was utilized in obtaining 1.25 mm thick contiguous axial images through the maxillofacial region without the use of intravenous contrast. Coronal and sagittal reformatted images were obtained. FINDINGS: There is no definite acute facial fracture identified. The mandible is intact without evidence of acute fracture or dislocation. Streak artifact from dental fillings and hardware. Mild mucosal thickeningin the bilateral maxillary sinuses and multiple ethmoidal air cells. Mild mucosal thi ckening in the left frontal sinus. Orbits are symmetrical and grossly intact. No significant facial soft tissue edema or hematoma. Visualized portion the brain demonstrates a fragment of a ventriculostomy tube partially visualized in the right frontal lobe extending to the midline. No hydrocephalus. Airway is patent and midline. Visualized salivary glands are grossly unremarkable. Upper cervical spine demonstrates mild degenerative changes. Impression: 1. No definite acute facial fracture identified. 2. Mild paranasal sinus disease. Final report electronically signed by: MD Nicolas Signed by: BUDDY CRUZ MD 11/30/19 0147 cc: RUDI NOVA JOHN E [facility]Blmer[facility] leukocytes automated count (number/volume)2019-11-29 23:09:00 Test Item Value Reference Range Comments White Blood Count (test code = 6690-2) 14.7 3.6-11.1 Blood erythrocytes automated count (number/volume)2019-11-29 23:09:00 Test Item Value Reference Range Comments Red Blood Count (test code = 789-8) 4.04 3.69-4.88 Blood hemoglobin measurement (mass/volume)2019-11-29 23:09:00 Test Item Value Reference Range Comments Hemoglobin (test code = 718-7) 13.2 11.4-14.4 Automated blood hematocrit (volume fraction)2019-11-29 23:09:00 Test Item Value Reference Range Comments Hematocrit (test code = 4544-3) 37.8 33.3-41.4 Automated erythrocyte mean corpuscular owoxsy6702-34-81 23:09:00 Test Item Value Reference Range Comments Mean Corpuscular Volume (test code = 787-2) 93.5 79.3 -94.8 Automated erythrocyte mean corpuscular hemoglobin (mass per erythrocyte) 2019-11-29 23:09:00 Test Item Value Reference Range Comments Mean Corpuscular Hemoglobin (test code = 785-6) 32.6 26.8-33.2 Automated erythrocyte mean corpuscular hemoglobin concentration measurement (mass/volume)2019-11-29 23:09:00 Test Item Value Reference Range Comments Mean Corpuscular Hemoglobin Concent (test code = 34.9 33.5-35.5 786-4) Automated erythrocyte distribution width [id number] 23:09:00 Test Item Value Reference Range Comments Red Cell Distribution Width (test code = 788-0) 13.6 12.0-15.1 Automated blood platelet count (count/volume)2019-11-29 23:09:00 Test Item Value Reference Range Comments Platelet Count (test code = 777-3) 263 165-353 Automated blood platelet mean volume benxvgwgwfo1614-16-03 23:09:00 Test Item Value Reference Range Comments Mean Platelet Volume (test code = 38722-2) 9.4 7.5-1 0.6 Blood band neutrophil count as percentage of total kbvbvubcjw1397-17-68 23:09:00 Test Item Value Reference Range Comments Neutrophils % (Manual) (test code = 00423-0) 56.0 43. 2-71.5 Blood lymphocytes/100 ssuelotvgy8883-60-41 23:09:00 Test Item Value Reference Range Comments Lymphocytes % (Manual) (test code = 95248-3) 28.0 16. 8-43.4 Blood lymphocytes variant/100 risjluepui7704-23-36 23:09:00 Test Item Value Reference Range Comments Atypical Lymphocytes % (Manual) (test code = 52240-6) 7.0 Monocyte %2019-11-29 23:09:00 Test Item Value Reference Range Comments Monocytes % (Manual) (test code = WNF4203) 4.0 4.6-1 2.4 Eosinophil %2019-11-29 23:09:00 Test Item Value Reference Range Comments Eosinophils % (Manual) (test code = YKP9791) 5.0 0.7 -7.8 Neutrophil ljdqp6863-06-36 23:09:00 Test Item Value Reference Range Comments Neutrophils # (Manual) (test code = 751-8) 8.2 1.9-7 .2 Absolute lymphocyte yhslh1831-61-27 23:09:00 Test Item Value Reference Range Comments Lymphocytes # (Manual) (test code = 35781-5) 5.1 1.1 -2.7 Absolute monocyte dpeug1231-87-44 23:09:00 Test Item Value Reference Range Comments Monocytes # (Manual) (test code = OYD6342) 0.6 0.3-0 .8 Automated blood eosinophil oehwc1303-38-20 23:09:00 Test Item Value Reference Range Comments Eosinophils # (Manual) (test code = 711-2) 0.7 0.0-0 .5 Automated basophil yslyh5645-90-07 23:09:00 Test Item Value Reference Range Comments Basophils # (Manual) (test code = 704-7) 0.0 0.0-0.1 Blood platelets count by estimate (number/volume)2019-11-29 23:09:00 Test Item Value Reference Range Comments Platelet Estimate (test code = 29382-0) NORMAL NORMAL Red Cell Morphology Uxqcbtb0889-35-82 23:09:00 Test Item Value Reference Range Comments Red Cell Morphology Comment (test code = RBCs Appear Normal Red Cell Morphology Comment) Sodium ttzay5264-99-75 23:09:00 Test Item Value Reference Range Comments Sodium Level (test code = 432472750) 141 137-144 Potassium phfwf6904-56-24 23:09:00 Test Item Value Reference Range Comments Potassium Level (test code = 646892533) 3.8 3.1-5.1 Chloride kzhla4483-70-32 23:09:00 Test Item Value Reference Range Comments Chloride Level (test code = 648726978) 108 101-110 Carbon dioxide jmngp4913-01-51 23:09:00 Test Item Value Reference Range Comments Carbon Dioxide Level (test code = 49627955) 24 22-2 9 Glucose ydwfg2878-37-32 23:09:00 Test Item Value Reference Range Comments Glucose Level (test code = 33010040) 115 70-105 [id number] 23:09:00 Test Item Value Reference Range Comments Blood Urea Nitrogen (test code = 733856429) 13.0 9.8- 20.1 Creatinine lsdsx8545-50-17 23:09:00 Test Item Value Reference Range Comments Creatinine (test code = 381159799) 0.73 0.57-1.11 Estimation of creatinine esvybqusx2147-26-34 23:09:00 Test Item Value Reference Range Comments Estimated Creatinine Clearance 81.82 P T Ht: 160.02cm, PT Wt: 79.5KG Calc (test code = 010355605) Anion gap ptinpzglxvv3097-20-46 23:09:00 Test Item Value Reference Range Comments Anion Gap (test code = 11817568) 13 7-16 Mbkefit1428-66-36 23:09:00 Test Item Value Reference Range Comments Calcium Level (test code = 65891151) 9.4 8.4-10.2 Total aopkhfqpx4856-28-05 23:09:00 Test Item Value Reference Range Comments Total Bilirubin (test code = XAY6750) 0.3 0.1-1.2 Total protein mfzhx3632-33-35 23:09:00 Test Item Value Reference Range Comments Total Protein (test code = 2885-2) 6.6 6.0-8.3 Bjhikyo0925-35-86 23:09:00 Test Item Value Reference Range Comments Albumin (test code = AQB0672) 4.0 3.2-5.2 Plasma globulin measurement (mass/volume)2019-11-29 23:09:00 Test Item Value Reference Range Comments Globulin (test code = 15287-8) 2.6 2.6-4.6 Albumin to globulin ygilf8462-78-63 23:09:00 Test Item Value Reference Range Comments Albumin/Globulin Ratio (test code = 737679) 1.5 1.1- 2.5 AST (SGOT) ser/umbz2881-33-24 23:09:00 Test Item Value Reference Range Comments Aspartate Amino Transf (AST/SGOT) (test code = 18 5 -34 04890964) Alkaline wakxoggryhm0549-49-75 23:09:00 Test Item Value Reference Range Comments Alkaline Phosphatase (test code = 71320979) 92 40-1 50 ALT (SGPT) ser/hblr5877-10-74 23:09:00 Test Item Value Reference Range Comments Alanine Aminotransferase (ALT/SGPT) (test code = 18 0-55 1742-6) Alcohol (ethanol) qlmpp8202-19-14 23:09:00 Test Item Value Reference Range Comments Ethyl Alcohol Level (test < 10 0-10 Elevat ed Lactic Acid concentration code = DQW7875) and Lactate Dehy drogenase (LD) activity may fal sey elevate enzymatically de termined Ethanol levels. Acetaminophen vvdbx0884-54-69 23:09:00 Test Item Value Reference Range Comments Acetaminophen Level (test code = < 3 Therapeutic Concentration: GPP6763) 10-30 ug/mLToxic Concentration: > 200 ug/mL Salicylate ser/pryk3017-53-01 23:09:00 Test Item Value Reference Range Comments Salicylate Level mg/dL (test < 5.0 The rapeutic Concentration: 15-30 code = 4024-6) mg/dLToxic Juanis ntration: 31-60 mg/dLLethal Conc entration: >60 mg/dL Thyrotropin [Units/volume] in Serum or Sedfqq5949-02-98 16:47:00 Test Item Value Reference Range Comments thyroid stim hormone (test code = thyroid stim 0.4861 uIU/mL 0 .3500-4.9400 hormone) Comprehensive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 2019-12-02 18:49:00 160 cm Oxygen saturation in Arterial blood by 2019-12-02 17:33:00 98 % Pulse oximetry BMI (Body Mass Index) 2019-11-29 22:14:00 31.0 kg/m2 Weight 2019-11-29 22:14:00 175.27 [lb_av] Systolic blood pressure 2011-05-30 10:19:00 156 mm[Hg] Diastolic blood pressure 2011-05-30 10:19:00 99 mm[Hg] Heart rate 2011-05-30 10:19:00 78 /min Body temperature 2011-05-30 10:19:00 36.56 Meri Respiratory rate 2011-05-30 10:19:00 18 /min Body weight 2011-05-30 10:19:00 73.936 kg BMI 2011-05-30 10:19:00 28.87 kg/m2 Body height 2011-05-23 15:36:00 160 cm Hospital Discharge Instructions 1. Screening for osteoporosis DEXA Discussion Note Visit conducted via telehealth. Patient greeted. Patient at home, provider in office during appointment. Identity confirmed by and address. Verbal consent obtained. MA assisted in reconciling medications, reviewing medical history, confirming a llergies and obtaining information regarding chief complaint. Patient made aware of potential limitations of video and audio telehealth visit. The duration of appt was over 15 minutes in face to face evaluation over audio-visual tele link over secure [employer] connection of which at least 50% of the time was spent in counseling. Patient educational handouts: No information available.1. Injury of nose 2. Injury of ribs Discussion Note: None recorded. Patient educational handouts: Noinformation available.AttachmentsThe following attachments cannot be sent through Care Everywhere.Depression ([place])documented in this encounter1. Hypertensive disorder 2. Asthma fluticasone propionate 50 mcg/actuation nasal spray,suspension montelukast 10 mg tablet 3. Pain of breast MAMMO, diagnostic, digital, bilateral DiscussionNote: None recorded. Patient educational handouts: No information available.1. Sore throat symptom rapid strep group A, throat methylprednisolone acetate 40 mg/mL suspension for injection Augmentin 875 mg-125 mg tablet fluticasone propionate 50 mcg/actuation nasal spray,suspension Zyrtec 10 mg tablet Discussion Note Follow-up as needed. Establish [facility] as primary care next Sunday, patient has been given education on how to switch this practice to primary care and we will then refer for dermatological consult and for mammogram as per patient's wishes. Patient educational handouts: No information available.
== END 2020-08-18 15:25 | disposition home or self-care (01) ==
LOC: OROUT 07:02
PROVIDERS: ATTEND Surgery
DX: C50.511 Malignant neoplasm of lower-outer quadrant of right female breast (principal); R41.89 Other symptoms and signs involving cognitive functions and awareness; Z98.890 Other specified postprocedural states; J44.9 Chronic obstructive pulmonary disease, unspecified; I10 Essential (primary) hypertension; F41.9 Anxiety disorder, unspecified; F17.200 Nicotine dependence, unspecified, uncomplicated; Z03.818 Encounter for observation for suspected exposure to other biological agents ruled out; Z80.3 Family history of malignant neoplasm of breast; Z60.2 Problems related to living alone; Z79.899 Other long term (current) drug therapy; Z85.828 Personal history of other malignant neoplasm of skin
CPT/HCPCS: 19301; 38500; 36415; 85025; 87635; 80048; 88342 ×2; 88305 ×2; 88307 ×2; 78195; 01610; 76098; A9520; J2250; J0690; J1100; J1885 ×2; J3010; J3490 ×4; J2405; J2704; J7613; Q9968; C9803; 1610